=== PATIENT | male | born 1975 | race Caucasian/White ===

== ENCOUNTER 2020-04-08 09:29 | Emergency (ER) | payer OTHER ==
[2020-04-08 09:41] VITALS: BP 124/78; PULSE 73; RESP 18; TEMP 98
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
== END 2020-04-08 10:20 | disposition home or self-care (01) ==
LOC: EC 09:29
DX: Z02.83 Encounter for blood-alcohol and blood-drug test (principal); F17.200 Nicotine dependence, unspecified, uncomplicated; Z91.030 Bee allergy status
CPT/HCPCS: 99282

== ENCOUNTER 2024-01-18 20:03 | Emergency (ER) | payer OTHER ==
[2024-01-18 20:17] VITALS: TEMP 98.2
[2024-01-18] MEDS: SODIUM CHLORIDE 0.9% 1,000 ML IV STA (20:32)
[2024-01-18 21:00] LABS: Basophils % (A) 0 %; Eosinophils # (A) 0.1 k/uL (0-0.7); Eosinophils % (A) 1 %; HCT 40.2 % (39.0-53.0); HGB 13.2 gm/dL (13.0-17.5); Lymphocytes # (A) 1.7 k/uL (1.0-4.8); Lymphocytes % (A) 23 %; MCH 30.5 pg (25.0-35.0); MCHC 32.8 g/dL (31.0-37.0); Mean Platelet Volume 9.9; Monocytes # (A) 0.6 k/uL (0-1.0); Monocytes % (A) 9 %; Neutrophils # (A) 4.8 k/uL (1.3-7.7); Neutrophils % (A) 65 %; Platelet Count 159 k/uL (150-450); RBC 4.32 m/uL (4.30-5.90); RDW 12.7 % (11.5-15.5); WBC 7.3 k/uL (3.8-10.6)
[2024-01-18 21:14] LABS: ALT 27 U/L (4-49); AST 30 U/L (17-59); African American GFR (CKD) >90 (>60 ml/min/1.73 sqM); Albumin 4.4 g/dL (3.5-5.0); Alkaline Phosphatase 48 U/L (38-126); Anion Gap 9 mmol/L; Blood Urea Nitrogen 15 mg/dL (9-20); Calcium 9.3 mg/dL (8.4-10.2); Carbon Dioxide 21 mmol/L (22-30); Chloride 106 mmol/L (98-107); Glucose 74 mg/dL (74-99); Magnesium 1.6 mg/dL (1.6-2.3); Non-African American GFR(CKD) >90 (>60 ml/min/1.73 sqM); Phosphorus 1.6 mg/dL (2.5-4.5); Potassium 3.8 mmol/L (3.5-5.1); Sodium 136 mmol/L (137-145); Total Bilirubin 1.1 mg/dL (0.2-1.3); Total Protein 6.5 g/dL (6.3-8.2)
[2024-01-18 21:15] LABS: INR 1.1 (<1.2)
[2024-01-18 21:23] LABS: NT-Pro-B-Type Natriuretic Pept <20 pg/mL
--- NOTE | 2024-01-18 21:25 | XR ---
EXAMINATION TYPE: XR chest 2V DATE OF EXAM: 01/18/2024 8:45 PM CLINICAL INDICATION:Male, 48 years old with history of Weakness; COMPARISON: Chest radiographs from 09/01/2023 TECHNIQUE: XR chest 2V Frontal view of the chest. FINDINGS: Lungs/Pleura: There is no evidence of pleural effusion, focal consolidation, or pneumothorax. Pulmonary vascularity: Unremarkable. Heart/mediastinum: Cardiomediastinal silhouette is unremarkable. Musculoskeletal: No acute osseous pathology. IMPRESSION: No acute cardiopulmonary disease/process.
[2024-01-18 21:30] LABS: Partial Thromboplastin Time 22.1 sec (22.0-30.0)
[2024-01-18] MEDS: SODIUM CHLORIDE 0.9% 1,000 ML IV ONE (21:33)
[2024-01-18] MEDS: ACETAMINOPHEN TAB 500 MG TAB PO STA (21:58)
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
[2024-01-18] MEDS: CYCLOBENZAPRINE 10MG STARTER 3 TAB BTL PO STA (23:17)
[2024-01-18 23:22] VITALS: BP 120/84; PULSE 86; RESP 15
== END 2024-01-18 23:23 | disposition home or self-care (01) ==
LOC: EC 20:03
DX: T67.5XXA Heat exhaustion, unspecified, initial encounter (principal); F17.200 Nicotine dependence, unspecified, uncomplicated; Z91.030 Bee allergy status
CPT/HCPCS: 36415; 71046; 80053; 82550; 83605; 83735; 83880; 84100; 84484; 85025; 85610; 85730; 93005; 96360; 96361; 99285